=== PATIENT | male | born 1990 | race Caucasian/White ===

== ENCOUNTER 2020-11-27 19:14 | Emergency (ER) | payer OTHER, SELFPAY ==
[2020-11-27 19:29] VITALS: BP 141/89; PULSE 65; RESP 16; TEMP 36.9; O2SAT 98; BMI 27.4
--- NOTE | 2020-11-27 19:48 | CTR_ITS ---
PROCEDURE INFORMATION: Exam: CT Cervical Spine Without Contrast Exam date and time: 11/27/2020 7:48 PM Age: 30 years old Clinical indication: Injury or trauma; Other: Thrown from horse; Blunt trauma; Additional info: Fall from horse TECHNIQUE: Imaging protocol: Computed tomography images of the cervical spine without contrast. Radiation optimization: All CT scans at this facility use at least one of these dose optimization techniques: automated exposure control; mA and/or kV adjustment per patient size (includes targeted exams where dose is matched to clinical indication); or iterative reconstruction. 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 The vertebral body alignment and stature is intact. No fracture or subluxation. The facets are intact. Discs/Spinal canal/Neural foramina: No significant disc protrusion. No severe spinal canal stenosis. No significant neural foraminal narrowing. Lymph nodes: Prominent cervical lymph nodes are most likely reactive. Lungs: Lung apices are normal. Soft tissues: Unremarkable. CT/CT cervical spin wo con* [id number] IMPRESSION: No acute finding. Radiation Dose CTDIVOL = (mGy): DLP = 620.69 (mGy-cm)
--- NOTE | 2020-11-27 19:48 | CTR_ITS ---
PROCEDURE INFORMATION: Exam: CT Head Without Contrast Exam date and time: 11/27/2020 7:48 PM Age: 30 years old Clinical indication: Injury or trauma; Other: Thrown from horse; Blunt trauma (contusions or hematomas); With loss of consciousness; Additional info: Fall from horse, loc TECHNIQUE: Imaging protocol: Computed tomography of the head without contrast. Radiation optimization: All CT scans at this facility use at least one of these dose optimization techniques: automated exposure control; mA and/or kV adjustment per patient size (includes targeted exams where dose is matched to clinical indication); or iterative reconstruction. COMPARISON: No relevant prior studies available. RADIATION DOSE METRICS: Total DLP (mGy-cm): 847.44 FINDINGS: Brain: 3 mm focus of acute subarachnoid hemorrhage in the superior left parietal lobe. 2 mm round parenchymal hemorrhage at the crook-white matter junction of the inferior right frontal lobe. Two small foci of subarachnoid hemorrhage in the inferior right frontal lobe. Cerebral ventricles: No ventriculomegaly. Paranasal sinuses: Visualized sinuses are unremarkable. No fluid levels. Mastoid air cells: Visualized mastoid air cells are well aerated. Bones/joints: Unremarkable. No acute fracture. Soft tissues: Unremarkable. CT/CT head wo con* [id number] IMPRESSION: 1. 3 mm acute traumatic subarachnoid hemorrhage and possible small cortical hemorrhagic contusion in the superior left parietal lobe. 2. 2 mm traumatic parenchymal hemorrhage at the crook-white matter junction of the inferior right frontal lobe. 3. Two small foci of traumatic subarachnoid hemorrhage in the inferior right frontal lobe. 4. No fracture identified. Radiation Dose CTDIVOL = (mGy): DLP = 847.44 (mGy-cm)
--- NOTE | 2020-11-27 19:53 | W.ED.GENADLT ---
HPI - General Adult General: Chief complaint: Trauma Stated complaint: thrown from horse Time Seen by Provider: 11/27/20 19:42 History of Present Illness: HPI narrative: Patient is a 30-year-old male without any significant past medical history presents emergency room after she was thrown off a horse. He tells me that he was riding horse when the horse started bucking about an hour ago when he was flung off. Patient reports hitting his head against the ground and passing out briefly for 5 seconds before his ran to him and found him unresponsive. Patient has no recollection of the events other than he passed out. Patient has No complaints of neck pain, back pain, abdominal pain or chest pain. Patient has complains of sore shoulders. However has not had any decreased range of motion or any other significant source of pain. Onset: 30 minutes ago Duration: once Location:home Severity: moderate Review of Systems Narrative: Constitutional: No fever, no chills. HEENT: No vision changes CV: No chest pain, no palpitations PULM: no cough, no dyspnea. GI: No abdominal pain, no N/V/D. : No dysuria MSKEL: +sore shoulders SKIN: No new rashes, no lesions. NEURO: +frontal headache, no focal weakness. HEME: No visible bruises PSYCH: Normal mood Physical Exam Narrative: EXAM NARRATIVE: Head: Atraumatic Eyes: PERRL, conjunctiva without injection ENT: Mucous membrane moist NECK: Supple, ROM intact LUNGS: LCTAB, no crackles/rhonchi CV: RRR ABDOMEN: Soft, nontender in all quadrants EXTREMITY: Normal ROM in the shoulders, no obvious deformity, tenderness to palpation in the extremities. SKIN: No rash or erythema NEURO: Awake and alert, no focal deficits in all extremities, sensations intact PSYCH: Normal mood and affect Course Vital Signs: Vital signs: Vital Signs Temperature 98.5 F 11/27/20 19:29 Pulse Rate 78 11/27/20 21:51 Respiratory Rate 18 11/27/20 21:51 Blood Pressure 122/86 11/27/20 21:51 Pulse Oximetry 100 11/27/20 21:51 MDM - General Adult MDM Narrative: Medical decision making narrative: 30-year-old male presented to emergency room after he was throwing a horse with complaints of LOC and frontal headache after hitting his head against the ground. No obvious signs of trauma or deformity. Patient is hemodynamically stable. Neuro intact Patient sent include CT brain and CT C-spine which showed 3mm SAH and 2mm traumatic parenchymal hemorrhage. NO signs of shifts. Patient continues to be HDS, no signs of neuro deterioration. Case discussed emergently with Dr. Garcia from [facility] who agrees with the transfer. Disposition: Transfer to outside hospital for serial observation and evaluation. Lab Data: Labs: Lab Results 11/27/20 11/27/20 11/27/20 21:06 21:06 21:06 WBC 7.4 10^3/uL 10^3/ uL (4.0-10.0) RBC 4.57 10^6/uL 10^6 /uL (4.1-5.3) Hgb 14.5 g/dL g/dL (11.7-16.6) Hct 43.6 % % (42.0-52.0) MCV 95.4 fl H fl (80-94) MCH 31.7 pg pg (28.0-34.0) MCHC 33.3 g/dL g/dL (30.0-36.0) RDW 12.5 % % (12.1-15.1) Plt Count 183 10^3/cmm 10^3 /cmm (130-400) MPV 9.3 fL fL (7.4-10.4) Neut % (Auto) 75.9 % % Lymph % (Auto) 14.7 % % Price % (Auto) 5.9 % % Eos % (Auto) 2.4 % % Baso % (Auto) 0.7 % % Neut # (Auto) 5.58 10^3/uL 10^3 /uL (1.8-7.7) Lymph # (Auto) 1.1 10^3/uL 10^3/ uL (0.8-4.8) Price # (Auto) 0.4 10^3/uL 10^3/ uL (0.2-0.9) Eos # (Auto) 0.2 10^3/uL 10^3/ uL (0.0-0.8) Baso # (Auto) 0.1 10^3/uL 10^3/ uL (0.0-0.1) Nucleated RBC % (a uto) 0 % % Nucleated RBCs # 0.0 /100WBC /100W BC PT 12.50 SECONDS SEC ONDS (12.1-14.9) INR 0.91 (0.8-1.2) APTT 28.8 SECONDS SECO NDS (23.9-36.7) Sodium Potassium Chloride Carbon Dioxide Anion Gap BUN Creatinine GFR Calculation Glucose Calculated Osmolal ity Calcium Blood Type A Positive Rho(D) Type Positive Antibody Screen Negative 11/27/20 21:06 WBC RBC Hgb Hct MCV MCH MCHC RDW Plt Count MPV Neut % (Auto) Lymph % (Auto) Price % (Auto) Eos % (Auto) Baso % (Auto) Neut # (Auto) Lymph # (Auto) Price # (Auto) Eos # (Auto) Baso # (Auto) Nucleated RBC % (a uto) Nucleated RBCs # PT INR APTT Sodium 137 mmol/L mmol/L (136-145) Potassium 3.4 mmol/L L mmol /L (3.5-5.1) Chloride 100 mmol/L mmol/L (98-107) Carbon Dioxide 28 mmol/L mmol/L (22-29) Anion Gap 12.4 (5-19) BUN 11 mg/dL mg/dL (6-20) Creatinine 0.8 mg/dL mg/dL (0.7-1.2) GFR Calculation 114.3 mL/min mL/m in (90-130) Glucose 88 mg/dL mg/dL (65-115) Calculated Osmolal ity 283 mOsm/kg L mOs m/kg (285-295) Calcium 9.2 mg/dL mg/dL (8.5-10.5) Blood Type Rho(D) Type Antibody Screen Imaging Data^: Other Imaging: Radiologist's impression: [employer] [id number] Scan ReportSigned Patient: Irvin Glass #: [id number]: 1990Acct#:[id number]/Sex: 30 / MADM Date: 11/27/20Loc: ERRoom/Bed:Attending Dr: Ordering Provider/Ordering MD: Chi Garcia MD Date of Service: 11/27/20 Procedure(s): CT head wo con* [id number] Accession Number(s): [id number] Report Number: [id number] PROCEDURE INFORMATION: Exam: CT Head Without Contrast Exam date and time: 11/27/2020 7:48 PM Age: 30 years old Clinical indication: Injury or trauma; Other: Thrown from horse; Blunt trauma (contusions or hematomas); With loss of consciousness; Additional info: Fall from horse, loc TECHNIQUE: Imaging protocol: Computed tomography of the head without contrast. Radiation optimization: All CT scans at this facility use at least one of these dose optimization techniques: automated exposure control; mA and/or kV adjustment per patient size (includes targeted exams where dose is matched to clinical indication); or iterative reconstruction. COMPARISON: No relevant prior studies available. RADIATION DOSE METRICS: Total DLP (mGy-cm): 847.44 FINDINGS: Brain: 3 mm focus of acute subarachnoid hemorrhage in the superior left parietal lobe. 2 mm round parenchymal hemorrhage at the crook-white matter junction of the inferior right frontal lobe. Two small foci of subarachnoid hemorrhage in the inferior right frontal lobe. Cerebral ventricles: No ventriculomegaly. Paranasal sinuses: Visualized sinuses are unremarkable. No fluid levels. Mastoid air cells: Visualized mastoid air cells are well aerated. Bones/joints: Unremarkable. No acute fracture. Soft tissues: Unremarkable. CT/CT head wo con* [id number] IMPRESSION: 1. 3 mm acute traumatic subarachnoid hemorrhage and possible small cortical hemorrhagic contusion in the superior left parietal lobe. 2. 2 mm traumatic parenchymal hemorrhage at the crook-white matter junction of the inferior right frontal lobe. 3. Two small foci of traumatic subarachnoid hemorrhage in the inferior right frontal lobe. 4. No fracture identified. Radiation Dose CTDIVOL = (mGy): DLP = 847.44 (mGy-cm) Dictated By:Shawn Negrete By:Shawn Negrete Date/Time:11/27/20 2043DD/ 47 [facility] [place] [id number] Scan ReportSigned Patient: Irvin Glass #: [id number]: 1990Acct#:[id number]/Sex: 30 / MADM Date: 11/27/20Loc: ERRoom/Bed:Attending Dr: Ordering Provider/Ordering MD: Chi Garcia MD Date of Service: 11/27/20 Procedure(s): CT cervical spin wo con* [id number] Accession Number(s): [id number] Report Number: [id number] PROCEDURE INFORMATION: Exam: CT Cervical Spine Without Contrast Exam date and time: 11/27/2020 7:48 PM Age: 30 years old Clinical indication: Injury or trauma; Other: Thrown from horse; Blunt trauma; Additional info: Fall from horse TECHNIQUE: Imaging protocol: Computed tomography images of the cervical spine without contrast. Radiation optimization: All CT scans at this facility use at least one of these dose optimization techniques: automated exposure control; mA and/or kV adjustment per patient size (includes targeted exams where dose is matched to clinical indication); or iterative reconstruction. 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 The vertebral body alignment and stature is intact. No fracture or subluxation. The facets are intact. Discs/Spinal canal/Neural foramina: No significant disc protrusion. No severe spinal canal stenosis. No significant neural foraminal narrowing. Lymph nodes: Prominent cervical lymph nodes are most likely reactive. Lungs: Lung apices are normal. Soft tissues: Unremarkable. CT/CT cervical spin wo con* [id number] IMPRESSION: No acute finding. Radiation Dose CTDIVOL = (mGy): DLP = 620.69 (mGy-cm) Dictated By:Shawn Negrete By:Shawn Negrete Date/Time:11/27/202047DD/ 47 Discharge Plan Discharge Patient Disposition: Transfer to ED Clinical Impression: Fall, Brief loss of consciousness, Concussion, Bleeding in brain Condition: Stable Prescriptions: New acetaminophen 500 mg tablet 500 mg PO Q6H PRN (Reason: pain) 7 Days Qty: 28 RF: 0 Coding Level of Care Code ED Transformer Molder for Gonzalo Mays
[2020-11-27 20:06] VITALS: BP 133/79; PULSE 61; RESP 12; O2SAT 97
[2020-11-27 21:15] LABS: Basophils # 0.1 10^3/uL (0.0-0.1); Basophils % 0.7 %; Eosinophils # 0.2 10^3/uL (0.0-0.8); Eosinophils % 2.4 %; Hematocrit 43.6 % (42.0-52.0); Hemoglobin 14.5 g/dL (11.7-16.6); Lymphocytes # 1.1 10^3/uL (0.8-4.8); Lymphocytes % 14.7 %; Mean Corpuscular HGB Conc 33.3 g/dL (30.0-36.0); Mean Corpuscular Hemoglobin 31.7 pg (28.0-34.0); Mean Corpuscular Volume 95.4 fl (80-94); Mean Platelet Volume 9.3 fL (7.4-10.4); Monocytes # 0.4 10^3/uL (0.2-0.9); Monocytes % 5.9 %; Neutrophils # 5.58 10^3/uL (1.8-7.7); Neutrophils % 75.9 %; Nucleated Red Blood Cells % 0 %; Platelet Count 183 10^3/cmm (130-400); Red Blood Count 4.57 10^6/uL (4.1-5.3); Red Cell Distribution Width 12.5 % (12.1-15.1); White Blood Count 7.4 10^3/uL (4.0-10.0)
[2020-11-27 21:22] LABS: INR 0.91 (0.8-1.2)
[2020-11-27 21:23] LABS: Partial Thromboplastin Time 28.8 SECONDS (23.9-36.7)
[2020-11-27 21:29] VITALS: BP 122/86; PULSE 68; RESP 17; O2SAT 100
[2020-11-27 21:30] LABS: Anion Gap 12.4 (5-19); Blood Urea Nitrogen 11 mg/dL (6-20); Calcium 9.2 mg/dL (8.5-10.5); Carbon Dioxide 28 mmol/L (22-29); Chloride 100 mmol/L (98-107); Glomerular Filtration Rate 114.3 mL/min (90-130); Glucose 88 mg/dL (65-115); Osmolality Calculated 283 mOsm/kg (285-295); Potassium 3.4 mmol/L (3.5-5.1); Sodium 137 mmol/L (136-145)
[2020-11-27 21:51] VITALS: BP 122/86; PULSE 78; RESP 18; O2SAT 100
== END 2020-11-27 21:50 ==
PROVIDERS: Emergency Provider Emergency Medicine
DX: S06.0X1A Concussion with loss of consciousness of 30 minutes or less, initial encounter (principal); S06.6X1A Traumatic subarachnoid hemorrhage with loss of consciousness of 30 minutes or less, initial encounter; V80.010A Animal-rider injured by fall from or being thrown from horse in noncollision accident, initial encounter
CPT/HCPCS: 70450; 72125; 80048; 85025; 85610; 85730; 86850; 86900; 99285

== ENCOUNTER → 2020-12-04 10:10 | Outpatient (BNVA) | payer OTHER, SELFPAY | PROVIDERS: Referring Provider Family Medicine; Visit Provider Podiatrist Foot & Ankle Surgery | DX: M79.671 Pain in right foot (principal) | CPT/HCPCS: 73630 ==

== ENCOUNTER → 2022-05-25 10:21 | Outpatient (BNVA) | payer OTHER, SELFPAY | PROVIDERS: Visit Provider Podiatrist Foot & Ankle Surgery | DX: M21.611 Bunion of right foot (principal); M21.612 Bunion of left foot | CPT/HCPCS: 73630 ==